=== PATIENT | female | born 1990 | race Two or more races ===

== ENCOUNTER 2020-10-22 02:13 | Emergency (ER) | payer OTHER ==
[~2020-10-22] VITALS: Ht 165.1 cm; Wt 73.0 kg
== END 2020-10-22 05:49 | disposition home or self-care (01) ==
LOC: ER 02:13
DX: R11.0 Nausea (principal); R11.10 Vomiting, unspecified; R10.84 Generalized abdominal pain; K52.89 Other specified noninfective gastroenteritis and colitis